=== PATIENT | male | born 1955 | race Caucasian/White ===

== ENCOUNTER 2025-08-14 10:04 | Observation (INO) ==
--- NOTE | 2025-07-22 15:58 | PAT Medication Instructions ---
Medication Instructions Date of Service July 22, 2025 Home Medications acetaminophen 500 mg tablet (Acetaminophen Extra Strength) 0 mg PO UD PRN Pain Take morning of surgery With a small sip of water, OTHERWISE NOTHING TO EAT OR DRINK AFTER MIDNIGHT: acetaminophen 500 mg tablet (Acetaminophen Extra Strength) 0 mg PO UD PRN Pain (if needed) Other Notes If you have any questions please call us at [phone] or [phone] or [phone] or [phone]
--- NOTE | 2025-07-30 09:30 | Anesthesiology Consultation ---
Date of Service July 30, 2025 Assessment & Plan (1) Encounter for pre-operative examination: - Infectious disease screening: Per assessment on 07/30/25- No known recent infectious disease contacts or current infectious disease symptoms. - Outpatient joint assessment: Pt currently scheduled for inpatient pathway. If surgeon requests review for outpatient joint pathway, patient is an acceptable candidate for outpatient joint program from anesthesia standpoint pending surgeon's office assessment that patient is motivated, has good support and completes [facility] Day Joint Program preop requirements. - Patient concern: Pt voices he wants to be "out" for surgery; notes "fear of needles" Chart Review Chart Review: Acceptable Risk for Surgery and Patient seen in Pre Admission Testing Teaching & Discussion Pre-Anesthesia Teaching/Discussion Notes: Instructed NPO after midnight before surgery,except medications with 15 cc of water. Medication instructions provided according to the PAT guidelines. History Surgery Operation Date: 08/28/25 12:00 Proposed Procedures p Robotic Assisted Right Total Knee Arthroplasty - Nigel Herrera DO Height/Weight Height: 6 ft Weight: 93.2 kg Allergies Allergy/AdvReac Type Severity Reaction Status Date / Time No Known Allergies Allergy Verified 07/22/25 15:01 Medications Home Medications Medication Instructions Recorded Confirmed Last Taken acetaminophen 500 mg tablet 0 mg PO UD PRN Pain 07/22/25 07/22/25 Unknown (Acetaminophen Extra Strength) Past Medical History Medical History Degenerative disc disease, cervical Elevated BP without diagnosis of hypertension Noted during previous wellness visit; advised to decrease caffeine intake Fear of needles Osteoarthritis Pinched nerve in neck Pinky/ring finger, left hand numbness (ulnar tunnel syndrome listed in records) Exercise / Class Metabolic Activity II 4-5 Yardwork/Stairs/Walk up hill Past Family History Family History Mother Breast cancer Cancer thyroid Brother Myocardial infarction Other No family history of adverse response to anesthesia Denies family history of Ovarian cancer Prostate cancer Colorectal cancer Past Surgical History Surgical History Atypical nevus of back Removed (benign) H/O excision of mass Right forearm soft tissue and lower back mole removal (2020) H/O wrist surgery Left History of cataract surgery Left History of right cataract surgery History of rotator cuff surgery Left Unique anesthetic considerations on preoperative anesthesia assessment Pt voices he wants to be "out" for surgery [place] teeth removed Past Anesthesia History No Hx of Anesthesia Complications and No Family Hx of Anesthesia Complications History of PONV No Hx of PONV and No Hx of Motion Sickness Social History Smoking Status: Current some day smoker tobacco type: cigars Smoking cigarettes per day: Occasional cigar, q6 months, rare use Do You Dip or Chew Tobacco: No Hx Alcohol Use: Yes Alcohol type: beer alcohol intake frequency: a few times a month (At most) Hx Substance Use: No substance use type: does not use Review of Systems Patient denies chest pain, shortness of breath, dyspnea on exertion, fever, chills, cough, wheezing, palpitations. Physical Exam Vital Signs BP 161/83 P 62 TEMP 98.1 SP02 95%RA RESP 16 Physical Full cervical extension range of motion. Full TMJ range of motion. TMD > 3.5 finger breaths Mallampati Score II Dentition: missing lower front/molars, + implant Lungs: clear throughout to auscultation Cardiac: regular rate and rhythm, no murmurs noted Spine: normal Carotid arteries: negative bruit Extremities: no LE edema Lab Results Anesthesia Preop Results Results Anesthesia Widget: WBC 6.40 K/ul (4.8-10.8) 07/30/25 Hgb 15.3 g/dl (14.0-18.0) 07/30/25 Hct 45.6 % (42.0-52.0) 07/30/25 Plt 216 K/uL (130-400) 07/30/25 Na 138 mmol/L (136-145) 07/30/25 K 4.0 mmol/L (3.5-5.1) 07/30/25 Cl 104 mmol/L (98-107) 07/30/25 CO2 28 mmol/L (21-32) 07/30/25 BUN 18 mg/dl (6-23) 07/30/25 Creat 0.82 mg/dl (0.6-1.4) 07/30/25 Glucose Level 105 mg/dl (70-99(Fasting)) H 07/30/25 PT 10.7 Seconds (9.0-12.0) 07/30/25 PTT 27 Seconds (21-31) 07/30/25 INR 1.0 (0.9-1.1) 07/30/25 Blood Type O Positive 07/30/25 Antibody Screen NEGATIVE 07/30/25 Testing Electrocardiogram Date: 07/30/25 NSR at 70bpm. "Normal ECG" Chest X-Ray Date: 07/30/25 Findings: + NAD Stress Test Date: 11/18/20 Negative stress echo/ecg for ischemia at 92% MPHR. Echo: EF 65-70%. No significant valvular abnormalities. Normal estimated RVSP.
--- NOTE | 2025-08-13 06:55 | History & Physical Report ---
Date of Service August 13, 2025 Assessment & Plan (1) Osteoarthritis of right knee: We will proceed with a right total knee arthroplasty. Postoperatively, he will be started on aspirin for DVT prophylaxis and kept overnight hospital for postop medical management. He plans to use energy physical therapy after discharge. History of Present Illness Chief Complaint: Osteoarthritis of the right knee. Primary Care Provider: Pat Addison MD Riley is a pleasant 69-year-old male who has been dealing with chronic increasing right knee pain. X-rays and clinical exam from prior visits have been diagnostic for advanced arthritis of the right knee. We have been treating him conservatively. He has not had any injections per his request. Unfortunately, his knee pain is getting worse. It is to the point where he cannot do things he enjoys anymore. His knee hurts him a lot at night. After failed conservative treatment, he has elected to proceed with a right total knee arthroplasty. Allergies Allergy/AdvReac Type Severity Reaction Status Date / Time No Known Allergies Allergy Verified 07/22/25 15:01 Home Medications Medication Instructions Recorded Confirmed Type acetaminophen 500 mg tablet 0 mg PO UD PRN Pain 07/22/25 07/22/25 History (Acetaminophen Extra Strength) Past Med/Surg History Problem List Cervical radiculopathy Cervical radicular pain Osteoarthritis of right knee Ulnar tunnel syndrome Encounter for pre-operative examination Hearing loss Elevated BP without diagnosis of hypertension Subcutaneous mass of right forearm Skin lesion (Chronic) Medical History Osteoarthritis Degenerative disc disease, cervical Pinched nerve in neck Pinky/ring finger, left hand numbness (ulnar tunnel syndrome listed in records) Elevated BP without diagnosis of hypertension Noted during previous wellness visit; advised to decrease caffeine intake Fear of needles Surgical History Unique anesthetic considerations on preoperative anesthesia assessment Pt voices he wants to be "out" for surgery Atypical nevus of back Removed (benign) H/O excision of mass Right forearm soft tissue and lower back mole removal (2019) History of right cataract surgery History of cataract surgery Left [place] teeth removed H/O wrist surgery Left History of rotator cuff surgery Left Family History Mother Breast cancer Cancer thyroid Brother Myocardial infarction Other No family history of adverse response to anesthesia Denies family history of Ovarian cancer Prostate cancer Colorectal cancer Social History Smoking Status: Current some day smoker Tobacco Type: Cigars Age Quit Using Tobacco: 22; Cigarettes Per Day: Occasional cigar, q6 months, rare use; Second Hand Exposure: No; Do You Dip or Chew Tobacco: No; Hx Alcohol Use: Yes Alcohol type: beer Hx Substance Use: No Preferred Language: Tajik Communication Ability: Effective Synchronizer Required: No Beliefs That Will Affect Care: None marital status: Single Current Living Situation: Alone current occupational status: retired How many Children do You have: 4 Feels Safe at Home: Yes Childhood Exposure to Second-Hand Smoke: No Diet: regular caffeine: Yes Dental Care, Regularly: Yes Physical Activity Frequency: Daily Seatbelt Use: always Sunscreen Use: Yes (sometimes) Assistive Devices: None Review of Systems All systems reviewed & are unremarkable except as noted in HPI & below. Physical Exam On physical exam of the right knee, he has a varus deformity. Tenderness palpation of the distal medial femoral condyle and over the medial joint line.. Constitutional WD/WN, vitals as above Eyes PERRL, conjunctivae normal, anicteric sclerae ENMT external ear and nose normal, oropharynx normal Neck trachea midline, no thyromegaly Respiratory normal respiratory effort Cardiovascular RRR, no murmur, no edema Gastrointestinal (Abdomen) normal bowel sounds, soft, nontender, no hepatosplenomegaly Psychiatric A+Ox3, euthymic affect Results & Data Results & Data Laboratory Results . Diagnostic Findings . PG Care Time/CCT Total # of Minutes Spent Total Time Spent with Patient: Total time spent is greater than 50% in coordination of care (as documented) at patient's floor/unit and/or counseling patient: Coding Level of Care Code None Diagnoses Osteoarthritis of right knee M17.11
[~2025-08-14 10:04] MED LIST: BUPIVACAINE 0.25% PF 30 ML VIAL ONE; BUPIVACAINE 0.5 % 5 MG/1 ML PF 10ML VIAL ONE; DEXAMETHASONE SOD INJ 4 MG/ML VIAL ONE
[2025-08-14] MEDS ORDERED: LIDOCAINE 2% 2 ML VIAL/AMP(20MG/ML) INFIL ONE ×2 (10:28→14:14)
[2025-08-14] MEDS ORDERED: PROPOFOL IV EMULSION 10 MG/ML 20 ML VIAL IV ONE ×2 (10:28→13:29)
[2025-08-14] MEDS ORDERED: ONDANSETRON INJ 2 MG/ML 2 ML VIAL ONE (10:28)
[2025-08-14] MEDS ORDERED: MIDAZOLAM HCL 1 MG/ML 2ML VIAL ONE ×2 (10:28)
[2025-08-14] MEDS: FAMOTIDINE 20 MG TAB PO SCH (10:32)
[2025-08-14] MEDS: GABAPENTIN 300 MG CAP PO SCH (10:32)
[2025-08-14] MEDS: dexAMETHasone**PF** 10 MG/ML VIAL IV SCH (10:32)
[2025-08-14] MEDS: ACETAMINOPHEN 500 MG TAB PO SCH ×2 (10:32→16:00)
[2025-08-14] MEDS: LR 500ML BOLUS, THEN 15ML/HR IV SCH (10:32)
[2025-08-14] MEDS: LR 60ML/HR IV SCH (10:33)
--- NOTE | 2025-08-14 11:19 | History & Physical Bridge Note ---
Date of Service August 14, 2025 History & Physical Bridge Note I have examined the patient, reviewed the History & Physical and in the interval since the performance of the History & Physical I have noted the following changes of clinical significance: no changes noted
[2025-08-14] MEDS ORDERED: ONDANSETRON INJ 2 MG/ML 2 ML VIAL IV PRN ×2 (11:42→15:45)
[2025-08-14] MEDS ORDERED: ATROPINE SULFATE 0.1 MG/ML 10ML SYR IV PRN (11:42)
[2025-08-14] MEDS ORDERED: PROMETHAZINE HCL 6.25 MG in SODIUM CHLORIDE 0.9% 50 ML IV PRN (11:42)
[2025-08-14] MEDS: TRANEXAMIC ACID 1,000 MG **IV Pre-op IV SCH (12:03)
[2025-08-14] MEDS: ROPIV 0.5% 246mg, Ketorolac 30mg, EPINEPHrine 0.5mg in NSS INFIL SCH (12:51)
[2025-08-14] MEDS: ORTHO JOINT ANESTHETIC ONE (12:51)
--- NOTE | 2025-08-14 13:32 | Operative Report ---
PG Post Operative Report Pre & Post Diagnosis Operation Date: 08/14/25 12:00 Pre-Op Diagnosis: Right Knee Osteoarthritis Post-Op Diagnosis: Right Knee Osteoarthritis I identified the patient and participated in the time-out.: Yes Procedure Operation Date: 08/14/25 12:00 Actual Procedures p Robotic Assisted Right Total Knee Arthroplasty(Right) - Nigel Herrera DO Surgeon Nigel Herrera DO Returns Supervisor Delia Weaver PA-C Estimated Blood Loss 30 Findings Consistent with Post-Op Diagnosis Specimens Right femoral and tibial bone Description of Procedure Implants used: I used a Theresa Persona total knee arthroplasty system with a size 10 standard PS femur, F tibia, 35 patella, and a size 10 CPS polyethylene bearing. All components were press-fit into place. Riley dariela [facility] for the above procedure. He was seen in the preoperative holding area and the operative extremity was identified and signed. he was given a preoperative antibiotic, TXA, a spinal anesthetic and an adductor nerve block. He was taken back to the operating room and laid on the table in supine position. He was given basic sedation. The operative knee was then prepped and draped in sterile fashion. A timeout was done, and the patient and the operative extremity was properly identified. A midline incision was made directly over the patella. Dissection was taken down to the extensor mechanism. A medial parapatellar arthrotomy was used. The medial retinaculum was released and the fat pad was mostly excised. The knee was flexed and the ACL, PCL, and meniscus were removed. The alignment of the knee replacement was assisted with a Ziplocal robotic knee. The femoral array was pinned in the distal femur and the tibial array was pinned using a percutaneous technique in the upper shaft of the tibia. The robot was appropriately calibrated and the structure of the knee was mapped out. The components were then manipulated on the screen to account for any malalignment and to assist in gap balancing. Once I was happy with the placement of the components on the screen, a distal femoral cutting guide was brought in place. The distal femur was then resected. The femur measured to be a size 10. A 4-in-1 cutting block was then put into place by the robot and 2 peg holes were drilled. The 4-in-1 cutting block was then impacted into place and anterior, posterior, and chamfer cuts were made. The cutting block was then brought down to the tibia and pinned into place. The proximal tibia was then resected. The posterior aspect of the knee was then opened up and any additional meniscus fragments and osteophytes were removed. The tibia measured to be a size F. The tibial plate was then placed in the appropriate rotation and the tibia was drilled and punched. Trial components were then placed. The patella was then everted and 9 mm was resected off the posterior aspect of the patella. The patella measured to be a size 35. 3 peg holes were then drilled. A trial patella was placed. A size 10 CPS polyethylene insert was then trialed. The knee was brought through a full range of motion and felt to be stable. Trial components were then removed. The surrounding soft tissues were injected with 100 cc of an orthopedic pain control cocktail. All components were then press-fit into place. The final polyethylene insert was then snapped into place. The tourniquet was deflated. Hemostasis was obtained. A dilute betadyne lavage was then done for 3 minutes. The joint was then irrigated with normal saline solution. The medial parapatellar arthrotomy was then closed with #1 Vicryl suture. The skin was closed with 2-0 Vicryl, 3-0V lock suture, and Hilda Zipline. A soft compressive dressing was placed. He was then transferred to a hospital bed and taken to the postanesthesia care unit in stable condition. He tolerated the procedure well. Delia Weaver PA-C, was present for the entire procedure. He was critical for patient positioning, prepping, draping, retraction exposure, wound closure and application of sterile dressing. I attest to the content of the Intraoperative Record and any orders documented therein. Any exceptions are noted below.
--- NOTE | 2025-08-14 14:38 | XRay Report ---
XR knee RT 1 or 2V routine CLINICAL HISTORY: Surgical Post Op COMPARISON: None FINDINGS: Right knee prosthesis shows no hardware complication. There is expected soft tissue gas. IMPRESSION: Unremarkable postoperative exam. ACT 112: Negative or not required by law. Electronically signed by: Rg Navas M.D. 08/14/2025 2:37 PM
--- NOTE | 2025-08-14 14:42 | Anesthesiology Progress Note ---
Date of Service August 14, 2025 Anesthesia Post Procedure Vital Signs Vital Signs: Temp Pulse Pulse Resp BP BP Pulse Ox 08/14/25 14:40 36.4 C L 84 15 131/80 94 08/14/25 14:30 82 12 124/72 93 08/14/25 14:21 87 20 130/85 97 08/14/25 14:10 84 13 123/72 100 08/14/25 14:02 36 C L 99 H 12 127/86 99 08/14/25 10:29 36.4 C L 66 18 189/96 H 98 O2 Del Method O2 Flow Rate 08/14/25 14:40 Room Air 08/14/25 14:30 Room Air 08/14/25 14:21 Oxymask 2 08/14/25 14:10 Oxymask 6 08/14/25 14:02 Oxymask 11 08/14/25 10:29 Room Air Transfer of Care Handoff Completed per policy Notes Mental Status: alert / awake / arousable Patient Amnestic to Procedure: Yes Nausea / Vomiting: adequately controlled Pain: adequately controlled Airway Patency, RR, SpO2: stable & adequate BP & HR: stable & adequate Hydration State: stable & adequate Anesthetic Complications: no major complications apparent
--- NOTE | 2025-08-14 15:36 | Anesthesiology Progress Note ---
Date of Service August 14, 2025 Anesthesia Post Procedure Vital Signs Vital Signs: Temp Pulse Pulse Resp BP BP Pulse Ox 08/14/25 15:30 76 20 115/86 98 08/14/25 15:20 86 15 132/84 95 08/14/25 15:10 76 16 108/51 L 95 08/14/25 15:00 79 13 121/80 97 08/14/25 14:50 74 15 125/68 94 08/14/25 14:40 36.4 C L 84 15 131/80 94 08/14/25 14:30 82 12 124/72 93 08/14/25 14:21 87 20 130/85 97 08/14/25 14:10 84 13 123/72 100 08/14/25 14:02 36 C L 99 H 12 127/86 99 08/14/25 10:29 36.4 C L 66 18 189/96 H 98 O2 Del Method O2 Flow Rate 08/14/25 15:30 Room Air 08/14/25 15:20 Room Air 08/14/25 15:10 Room Air 08/14/25 15:00 Room Air 08/14/25 14:50 Room Air 08/14/25 14:40 Room Air 08/14/25 14:30 Room Air 08/14/25 14:21 Oxymask 2 08/14/25 14:10 Oxymask 6 08/14/25 14:02 Oxymask 11 08/14/25 10:29 Room Air Transfer of Care Handoff Completed per policy Notes Mental Status: alert / awake / arousable Patient Amnestic to Procedure: Yes Nausea / Vomiting: adequately controlled Pain: adequately controlled Airway Patency, RR, SpO2: stable & adequate BP & HR: stable & adequate Hydration State: stable & adequate Neuraxial Anesthesia: was administered and sensory block is resolving Anesthetic Complications: no major complications apparent and Pt Satisfied with anesthetic care
[2025-08-14] MEDS ORDERED: diphenhydrAMINE Capsule 25 MG CAP PO PRN (15:45)
[2025-08-14] MEDS ORDERED: KETOROLAC TROMETHAMINE 15 MG/ML VIAL IV SCH (15:45)
[2025-08-14] MEDS ORDERED: HYDROmorphone INJ 0.5 MG/0.5 ML SYR IV PRN (15:45)
[2025-08-14] MEDS ORDERED: TAMSULOSIN HCL 0.4 MG CAP PO PRN (15:45)
[2025-08-14] MEDS: SODIUM CHLORIDE 0.9% 1,000 ML IV SCH (15:45)
[2025-08-14] MEDS ORDERED: MAGNESIUM HYDROXIDE SUSP 30 ML UDC PO PRN (15:45)
[2025-08-14] MEDS ORDERED: NALOXONE HCL 0.4 MG/1 ML VIAL/CARP IV PRN (15:45)
[2025-08-14] MEDS ORDERED: METOCLOPRAMIDE HCL INJ 5 MG/ML 2 ML VIAL IV PRN (15:45)
[2025-08-14] MEDS: KETOROLAC TROMETHAMINE 15 MG/ML VIAL IV SCH (16:00)
[2025-08-14] MEDS: ASPIRIN 81 MG ECTAB PO SCH (20:43)
[2025-08-14] MEDS: SENNA 8.6 MG TAB PO SCH (20:43)
[2025-08-14] MEDS: DOCUSATE SODIUM 100 MG CAP PO SCH (20:43)
[2025-08-15 07:38] VITALS: BP 159/80; PULSE 84; RESP 16; TEMP 98.4; O2SAT 96
--- NOTE | 2025-08-15 07:44 | Orthopedic Progress Note ---
Date of Service August 15, 2025 Assessment & Plan (1) Osteoarthritis of right knee: Overall he is doing very well. He is not having much pain in the right knee. He will be seen by physical therapy today for ambulation and range of motion exercises. The nursing staff can change his dressing after physical therapy. He is on aspirin for DVT prophylaxis. He can be discharged to home later today. He will follow-up orthopedics in 2 weeks. Monie Lin was seen and examined at bedside this morning. Overall he is doing very well. He is not having much pain in the right knee. He is been up and ambulating to the bathroom. He has no complaints.. Review of Systems All systems reviewed & are unremarkable except as noted in HPI & below. Physical Exam On physical exam of the right knee, the dressing is clean and dry. His leg is out in full extension. He has active dorsiflexion and plantarflexion of the right ankle.. Results & Data Results & Data Laboratory Results . Diagnostic Findings Postoperative x-rays of the right knee show the prosthesis to be in anatomic alignment without any evidence of fracture, dislocation, or loosening.. PG Care Time/CCT Total # of Minutes Spent Total Time Spent with Patient: Total time spent is greater than 50% in coordination of care (as documented) at patient's floor/unit and/or counseling patient: Coding Level of Care Code 56641 Post Operative Follow-Up Diagnoses Osteoarthritis of right knee M17.11
[2025-08-15] MEDS: MULTIVITAMIN TAB PO SCH (07:49)
== END 2025-08-15 10:15 | disposition home or self-care (01) ==
LOC: 3W 10:04 → ASU 10:04